=== PATIENT | male | born 1980 | race Two or more races ===

== ENCOUNTER 2018-10-28 17:10 | Emergency (ER) | payer SELFPAY ==
[~2018-10-28] VITALS: Ht 172.7 cm; Wt 70.0 kg
[2018-10-28 23:49] LABS: CHLORIDE 105 mEq/L (98-107)
[2018-10-28 23:51] LABS: BASOPHILS % 0.7 % (0.0-2.0); EOSINOPHILS % 3.2 % (0.0-5.0); HEMATOCRIT. 49.2 % (42.0-52.0); HEMOGLOBIN. 16.8 g/dL (14.0-18.0); LYMPHOCYTES % 33.1 % (20.0-50.0); MEAN CORPUSCULAR HEMOGLOBIN 30.6 pg (28.0-32.0); MEAN CORPUSCULAR VOLUME 89.4 fL (80.0-94.0); MEAN PLATELET VOLUME 9.4 fl (7.4-10.4); MONOCYTES % 12.1 % (2.0-8.0); NEUTROPHILS % 50.9 % (40.0-76.0); PLATELET 155 x1000/uL (130-400); RED BLOOD CELL COUNT 5.51 mill/uL (4.7-6.1); RED CELL DISTRIBUTION WIDTH 13.2 % (11.6-14.6)
[2018-10-29 00:31] VITALS: BP 127/85
== END 2018-10-29 01:03 | disposition home or self-care (01) ==
LOC: ER 17:10
DX: J01.90 Acute sinusitis, unspecified (principal); R51 Headache
CPT/HCPCS: 36415; 99284